=== PATIENT | male | born 1945 | race Caucasian/White ===

== ENCOUNTER 2016-09-10 10:30 | Inpatient (IN) ==
[2016-09-10] MEDS ORDERED: *HR* HYDROmorphone (PF) 1 MG/ML SYRINGE IVP ONE (12:51)
[2016-09-10] MEDS ORDERED: Naloxone 0.4 MG/ML INJ IVP PRN (13:14)
[2016-09-10] MEDS ORDERED: Ondansetron 4 MG/2 ML VIAL IVP PRN (13:14)
[2016-09-10] MEDS ORDERED: Acetaminophen 325 MG TABLET PO PRN (13:14)
--- NOTE | 2016-09-10 13:31 | Internal Med History&Physical ---
<Reg Akhtar - Last Filed: 09/10/16 13:24> Date of Encounter: 09/10/16 Time of Encounter: 13:25 Assessment and Plan (1) Pulmonary embolus Current visit: No Status: Acute Acute unprovoked pulmonary embolism with thin saddle component. Patient is symptomatic with hypoxia and chest pain. Onset last evening. Patient denies any clotting history, previous DVTs, PEs, or predisposing factors. - Requiring increased oxygen demand. - Abdominal distention Plan: - Continue heparin drip that was started in [place]. - Continuous cardiac monitoring and oxygen monitoring - Every 4 hour vitals - Duplex Doppler bilateral lower extremity - CT of the abdomen - Hepatic panel - PT/INR/PTT - Troponin 2 - Echocardiogram Qualifiers: Qualified Code(s): I26.99 - Other pulmonary embolism without acute cor pulmonale (2) COPD (chronic obstructive pulmonary disease) Current visit: Yes Status: Acute History of COPD emphysema. Baseline oxygen 2 L at home. Patient does not wear all the time. Current respiratory effort diminished with submassive PE. Plan: - DuoNeb scheduled - Albuterol nebulizer scheduled Qualifiers: Qualified Code(s): J44.9 - Chronic obstructive pulmonary disease, unspecified (3) Tobacco abuse Current visit: Yes Status: Acute Patient has significant smoking history and currently smokes 2 bowls in his pipe daily. Smoking cessation is highly recommended, patient is aware and this is been discussed. (4) ANDREW (acute kidney injury) Current visit: Yes Status: Acute Creatinine 1.39. Unknown a baseline. Will monitor. -We will allow patient to take by mouth fluids and hold off on IV fluids at this time. (5) DVT prophylaxis Current visit: Yes Status: Acute Heparin GTT Internal Medicine - H&P: HPI Chief complaint: Chest pain and left-sided Admitted From: Emergency Dept Plans for Post Hospital Care: Home History of present illness: Mr. Escalante is a 70 year old male history of COPD wears 2 L of oxygen at home Baseline was transferred from [facility] emergency department with a pulmonary embolism. Mr. Escalante woke up this morning around midnight with left-sided chest pain that came on acutely. He said that he was laying in bed sleeping and was awoken abruptly with left-sided lower rib chest pain which he thought was indigestion. He went down to the kitchen and had a glass of milk and his abdomen may a larger rumbling sound and he felt pain shoot around his abdomen and then back to his left lower anterior ribs. The pain stays isolated does not radiate anywhere else is exacerbated with deep breaths and made him feel short of breath. He is able to use one hand and point to the pain which is anterior lateral ribs around ribs 9 and 10. He denies any pain like this previously. He did not take any other medications to relieve the pain. He was recently hospitalized at [facility] for a COPD exacerbation for which she was discharged with prednisone. Discharge was roughly 1 month ago. He also mentions that he had a low-grade fever 2 days ago but was fully resolved yesterday. He denies any injuries, falls, dramatic events, tight restricting clothing, swelling his lower extremities or infections that may have been predisposing this event. He denies any blood clots previously has never had a DVT or PE. He denies any history of blood clotting disorders or any family history of blood clots. After arriving at [facility] he was found to have acute bilateral pulmonary embolism with since our component. More extensive on the left side. RV/LV ratio measures approximately 1.0. The CTA was also concerning for groundglass attenuations that could not rule out developing infarct of the lung. Also noted was a indeterminate liver lesion as partially visualized on the imaging study. Upon arrival to [facility] he continued to have left- sided chest pain. Patient says that he is usually fully functional without assistive devices and is not very sedentary. Past Med Surg Social Fam HX - Past Medical History Medical history: COPD Psychiatric history: no psych history - Past Surgical History Surgical History: appendectomy, hip replacement - Social History Smoking Status: Current some day smoker Smokeless Tobacco Status: No (PIPE- 2 BAGS DAILY) Alcohol use: none Drug use: none - Family History Brother Hx Family Cardiac Disorders: Yes (CABG) Hx Family Medical Disorders: Yes (MELANOMA) Internal Medicine - H&P: Meds Albuterol Sulfate [Albuterol Inhaler] 2 puff IH Q6HR PRN 09/10/16 [History] Budesonide/Formoterol 80/4.5 [Symbicort 80/4.5] 1 puff IH DAILY 09/10/16 [ History] Ipratropium/Albuterol Neb [Duoneb] 3 ml IH Q6HR 09/10/16 [History] Allergies No Known Allergies Allergy (Verified 09/10/16 06:01) All Systems PM: A 10-system review of systems was performed and is negative for pertinent findings except as documented above in the HPI. - Constitutional Constitutional: no fever(s), no falls, no night sweats, no weakness - EENT Eyes: no diplopia, no discharge, no loss of vision, no pain Nose, mouth and throat: no change in voice, no mouth pain, no nasal discharge, no sinus pain, no sore throat - Cardiovascular Cardiovascular ROS IM: chest pain, dyspnea, dyspnea on exertion, no claudication , no diaphoresis, no edema, no orthopnea Additional comments: Pain worse on laying flat. - Respiratory Respiratory: dyspnea, dyspnea on exertion, pain on inspiration, pain with cough , no hemoptysis, no wheezing - Gastrointestinal Gastrointestinal: dyspepsia, no belching, no bloating, no diarrhea, no dysphagia , no early satiety, no nausea - Genitourinary Genitourinary ROS male: no dysuria, no flank pain, no nocturia - Musculoskeletal Musculoskeletal ROS IM: no back pain, no muscle cramps, no muscle weakness, no numbness, no stiffness - Neurological Neurological ROS: no abnormal hearing, no abnormal movements, no abnormal speech , no confusion - Allergic/Immunologic Allergic/Immunologic: no tongue swelling - Constitutional Vitals: Pulse BP Pulse Ox 72 145/85 95 09/10/16 12:57 09/10/16 12:53 09/10/16 12:57 General appearance: Present: cooperative, mild distress, A&O X 3, pleasant - Head Head exam: Present: atraumatic, normocephalic - Eye Eye exam: Present: PERRL, conjuntiva pink, sclera anicteric Pupils: Present: PERRL - ENT ENT exam: Present: mucous membranes moist - Neck Neck exam general surgery: Present: supple, trachea midline. Absent: lymphadenopathy - Respiratory Additional comments: Patient demonstrates tachypnea, short quick breaths, low-grade wheezing diffusely. - Cardiovascular Cardiovascular exam: Present: RRR, +S1, +S2 Additional comments: Grade 2/6 systolic ejection murmur - GI/Abdominal GI/Abdominal exam: Present: firm, normal bowel sounds, no peritoneal signs. Absent: distended, tenderness - Extremities Exam Extremities exam: Present: normal capillary refill, normal inspection, warm, radial pulses palpable and symetrical. Absent: calf tenderness, cyanotic, joint swelling, pedal edema - Back Exam Back exam: Present: normal inspection - Neurological Exam Neurological exam: Present: CN II-XII intact, oriented X3, no focal deficits. Absent: pronater drift, facial droop, speech deficit - Psychiatric Psychiatric exam: Present: normal affect, normal mood - Skin Skin exam: Present: dry, intact <Dmitriy Guzman T - Last Filed: 09/10/16 14:10> Date of Encounter: 09/10/16 Internal Medicine - H&P: HPI History of present illness: Mr. Escalante is a 70 year old male All Systems PM: A 10-system review of systems was performed and is negative for pertinent findings except as documented above in the HPI. - Constitutional Vitals: Temp Pulse Resp BP Pulse Ox 97.6 F 72 20 145/85 95 09/10/16 12:50 09/10/16 12:57 09/10/16 12:50 09/10/16 12:53 09/10/16 12:57 - Attending Attestation I have independently interviewed and examined this patient. I have reviewed the EMR extensively and discussed plan of care the resident/nurse practitioner. 70 Y/O M with PMH of Emphysema, tobacco use who presented to [facility] ED with complains of pleuritic chest pain. He is evaluated at bedside with family members, tobacco smoker, COPD, with chronic hypoxia on home O2 which he does not wear all the time, He was well until midnight of day before presentation when he developed acute left sided severe 10/10 chest pain, associated with difficulty breathing, chest pain is sharp and worse with breathing and did not relieve with any OTC. He denies recent travel, leg pain or swelling, hx of thrombophilia, he does not follow up regularly with his PCP, and not complaint with his COPD medications Physical exam revealed , severe painful distress, crouching to the left side, no chest wall tenderness, hypoxia , no neurologic deficits, chest with diminished breath sounds and Left sided rhonchi peripherally S1/S2 , no m/g/r, abdomen is benign, no pedal edema, has Grade III finger clubbing bilaterally. Labs and Imaging reviewed: Leukocytosis with left shift, D-dimer 12,032, Chem with Cr 1.36 and GFR 52, troponin is negative, BNP is normal, Utox with opiates. EKG-, CTA: acute bilateral PE, thin saddle component, more extensive on the left, patchy areas of ground glass opacities, nonspecific and infectious or inflammatory in etiology, developing infarcts cannot be excluded. Lung nodules, indeterminate liver lesions Assessment/Plan: Acute on Chronic Hypoxic respiratory failure secondary to Acute Unprovoked Bilateral PE, mild saddle component, Pulmonary infarcts with intractable pain, hemodynamically stable, no R heart strain, continue heparin drip with plan to bridge, obtain ECHO, LE Doppler, Emphysema duonebs prn, Leukocytosis possibly due to stress, patient denies new cough, or change in phlegm, he is afebrile ANDREW: Encourage oral fluid intake, baseline is unknown to patient. Obtain abdomen and pelvis CT to assess possible liver lesions Rest of details as in Residents documentation.
[2016-09-10] MEDS ORDERED: *HR* Heparin 5,000 UNIT/ML VIAL IVP PRN (13:51)
[2016-09-10] MEDS: Heparin 25,000 UNIT/500 ML D5W 25,000 UNIT/500 ML MLS IVC SCH (14:00)
[2016-09-10 14:38] LABS: Hematocrit 37.5 % (37.5-50.1); Mean Corpuscular Hemoglobin 30.5 pg (28.0-33.3); Mean Corpuscular Volume 95.4 fL (83.0-100.0); Mean Platelet Volume 9.4 fL (9.4-12.4); Platelet Count 220 K/mcL (140-400); Red Blood Count 3.93 M/mcL (4.19-5.50); Red Cell Distribution Width 13.6 % (11.5-14.5)
[2016-09-10 14:52] LABS: Chol/HDL Ratio 3.2 (0-4.9); Magnesium 1.9 mg/dL (1.6-2.6); Phosphorous 9.4 mg/dL (2.3-4.7)
[2016-09-10] MEDS: Pantoprazole 40 MG VIAL IVP SCH (15:33)
[2016-09-10] MEDS ORDERED: Albuterol 2.5 MG/3 ML NEBULIZER IH SCH (16:00)
[2016-09-10] MEDS ORDERED: Albuterol 2.5 MG/3 ML NEBULIZER IH PRN (16:06)
[2016-09-10] MEDS: Ipratropium/Albuterol Neb 3 ML IH SCH ×3 (16:09→23:57)
[2016-09-10] MEDS: *HR* Morphine 2 MG/ML SYRINGE IVP PRN (16:54)
[2016-09-10 17:25] LABS: Bilirubin,Urine Negative (Negative); Blood,Urine Negative (Negative); Clarity,Urine Clear (Clear); Color,Urine Yellow (Yellow); Glucose,Urine (UA) Normal (Normal); Ketones,Urine Negative (Negative); Leukocyte Esterase,Urine Negative (Negative); Nitrite,Urine Negative (Negative); PH,Urine 5.5 pH Units (5.0-8.0); Protein,Urine 30 mg/dL (Neg-Trace); Specific Gravity,Urine > 1.030 (1.010-1.025); Urobilinogen,Urine Normal (Normal)
[2016-09-10 17:27] LABS: Bacteria,Urine None Seen per hpf (None-Few); RBC,Urine 0-3 per hpf (0-3); Squamous Epithelial Cell,Urine Many per lpf (None-Few); WBC,Urine 0-3 per hpf (0-3)
[2016-09-10 19:39] LABS: INR 1.3
[2016-09-10 19:42] LABS: Prothrombin Time 14.2 Seconds (9.4-12.1)
[2016-09-10] MEDS: *HR* OxyCODONE/APAP 5/325 TABLET PO PRN (20:20)
[2016-09-10 22:57] LABS: BUN/Creatinine Ratio 15 (6-26); Blood Urea Nitrogen 21 mg/dL (8-26); Calcium 8.7 mg/dL (8.6-10.8); Carbon Dioxide 24 mEq/L (19-29); Chloride 102 mEq/L (98-109); Glucose 107 mg/dL (70-99); Osmolality,Calculated 285 (280-300); Potassium 4.2 mEq/L (3.5-4.5); Sodium 136 mEq/L (136-145); eGFR For African Americans > 60 (> 60); eGFR For Non-African Americans 50 (> 60)
[2016-09-11] MEDS: *HR* Morphine 2 MG/ML SYRINGE IVP PRN ×3 (01:25→05:55)
[2016-09-11 01:34] LABS: BUN/Creatinine Ratio 15 (6-26); Basophils # 0.1 K/mcL (0.0-0.2); Basophils % 0.4 %; Blood Urea Nitrogen 21 mg/dL (8-26); Calcium 8.6 mg/dL (8.6-10.8); Carbon Dioxide 25 mEq/L (19-29); Chloride 102 mEq/L (98-109); Eosinophils # 0.1 K/mcL (0.0-0.6); Eosinophils % 0.4 %; Glucose 101 mg/dL (70-99); Hematocrit 37.2 % (37.5-50.1); Hemoglobin 12.2 g/dL (12.9-16.9); Immature Granulocytes % 0.6 % (0-4); Lymphocytes # 1.5 K/mcL (0.6-4.6); Lymphocytes % 12.2 %; Mean Corpuscular HGB Conc 32.8 g/dL (31.6-35.5); Mean Corpuscular Volume 94.7 fL (83.0-100.0); Mean Platelet Volume 9.3 fL (9.4-12.4); Monocytes # 1.4 K/mcL (0.0-1.3); Monocytes % 11.5 %; Neutrophils # 8.9 K/mcL (1.6-8.9); Osmolality,Calculated 285 (280-300); Platelet Count 226 K/mcL (140-400); Potassium 4.3 mEq/L (3.5-4.5); Red Blood Count 3.93 M/mcL (4.19-5.50); Red Cell Distribution Width 13.7 % (11.5-14.5); Segmented Neutrophils % 74.9 %; Sodium 136 mEq/L (136-145); eGFR For African Americans > 60 (> 60); eGFR For Non-African Americans 51 (> 60)
[2016-09-11] MEDS: *HR* Heparin 5,000 UNIT/ML VIAL IVP PRN ×2 (01:43→23:18)
[2016-09-11] MEDS: *HR* OxyCODONE/APAP 5/325 TABLET PO PRN (02:54)
[2016-09-11] MEDS: Ipratropium/Albuterol Neb 3 ML IH SCH ×6 (03:45→23:37)
[2016-09-11] MEDS ORDERED: Ibuprofen 400 MG TABLET PO PRN (06:09)
[2016-09-11] MEDS ORDERED: *HR* HYDROmorphone 20 MG/20 ML PCA IVC PRN (06:12)
--- NOTE | 2016-09-11 06:20 | Event Note ---
Date of Encounter: 09/11/16 Time of Encounter: 06:15 Called to see patient for complaints of pleuritic chest pain uncontrolled by Morphine and Percocet. Pt is splinting and complains of severe chest pain with any significant inspiration. On exam, he is shallow breathing so as to avoid pain. Lungs sounds are distant with prolonged expiratory phase. He does have some mild wheezing. HR is 100's; BP 120/70's. I reviewed his CTA of chest and abdomen. I suspect he has a pulmonary infarct developing in addition to his PE. I stopped his pain medications and called pharmacy requesting assistance with starting him on a Morphine COMMUNITY RECREATION PROGRAMMER pump. In addition, I'm adding Ibuprofen to help with the inflammatory component of his PE/Infarct. ECHO has already been ordered by Dr. Guzman. I am requesting an EKG at the moment and will review it.
[2016-09-11] MEDS ORDERED: 0.9 % Sodium Chloride 250 ML ONE (06:54)
[2016-09-11] MEDS: Pantoprazole 40 MG VIAL IVP SCH (09:55)
[2016-09-11] MEDS ORDERED: PROAIR INHALER IH PRN (10:39)
[2016-09-11] MEDS ORDERED: *HR* HYDROmorphone 2 MG/ML SYRINGE IVP PRN (12:00)
[2016-09-11] MEDS ORDERED: *HR* Morphine 2 MG/ML SYRINGE IVP PRN (12:01)
[2016-09-11] MEDS ORDERED: Acetaminophen 325 MG TABLET PO PRN (12:08)
[2016-09-11] MEDS: Capsaicin 0.025% 60 GM TUBE TP PRN ×2 (12:08→17:54)
--- NOTE | 2016-09-11 12:41 | Internal Med Progress Note ---
Date of Encounter: 09/11/16 Time of Encounter: 11:50 - Assessment and plan (1) Pulmonary embolus Current Visit: No Status: Acute Assessment and plan: CT chest consistent with bilateral PE currently on Heparin gtt B/L LE venous doppler reported LLE DVT discontinued APPLIANCE TECHNICIAN dilaudid pump due to mental status Will continue Dilaudid 1mg IV q2h prn severe pain and Toradol 30mg IV q6h prn moderate pain Hematology consultation requested with Dr. Kang will continue O2 supplementation 2D echo done, awaiting report. Qualifiers: Pulmonary embolism type: saddle Chronicity: acute Acute cor pulmonale presence: without acute cor pulmonale Qualified Code(s): I26.92 - Saddle embolus of pulmonary artery without acute cor pulmonale (2) Leukocytosis (leucocytosis) Current Visit: Yes Status: Acute Assessment and plan: CT chest concerning for infiltrates/consolidation given fever, will start empiric IV abx therapy for PNA continue IV vanc and zosyn pharmacy to dose vanco and monitor trough follow up blood cultures tylenol prn fever Qualifiers: Leukocytosis type: unspecified Qualified Code(s): D72.829 - Elevated white blood cell count, unspecified (3) COPD (chronic obstructive pulmonary disease) Current Visit: Yes Status: Acute Assessment and plan: not in acute exacerbation will continue bronchodilator support monitor O2 sat O2 supplementation as needed Qualifiers: COPD type: unspecified COPD Qualified Code(s): J44.9 - Chronic obstructive pulmonary disease, unspecified (4) ANDREW (acute kidney injury) Current Visit: Yes Status: Acute Assessment and plan: renal function improved from previous day continue to hold nephrotoxic agents monitor renal function closely (5) DVT prophylaxis Current Visit: Yes Status: Acute Assessment and plan: anticoagulated with heparin gtt (6) Tobacco abuse Current Visit: Yes Status: Chronic - Subjective Interval history: Patient seen and examined with family present at bedside. Patient admitted for bilateral PE and reported to have LLE DVT as well. He is currently on heparin gtt. Reported of severe pleuritic chest pain for which he was started on Dilaudid APPLIANCE TECHNICIAN pump earlier this morning. At this time his mental status is somnolent. He is arousable but not able to maintain a conversation. Reports of pain being under control. Noted to be tachycardic and febrile. 2D echo done-report pending - Constitutional Vitals: Temp Pulse Resp BP Pulse Ox 101.3 F H 112 20 136/79 93 09/11/16 11:57 09/11/16 12:10 09/11/16 11:57 09/11/16 11:57 09/11/16 11:57 General appearance: Present: cooperative, mild distress (painful distress, somnolent), A&O X 3, pleasant - Head Head exam: Present: atraumatic, normocephalic - Eye Eye exam: Present: normal appearance, conjuntiva pink, sclera anicteric - Respiratory Respiratory exam: Absent: wheezes (coarse breath sounds bilaterally) - Cardiovascular Cardiovascular exam: Present: +S1, +S2, tachycardia - GI/Abdominal GI/Abdominal exam: Present: normal bowel sounds, soft, no peritoneal signs. Absent: distended, tenderness - Extremities Exam Extremities exam: Present: warm, radial pulses palpable and symetrical. Absent : calf tenderness, pedal edema - Neurological Exam Neurological exam: Present: alert, oriented X3 Internal Medicine: Result - Labs CBC & Chem 7: 09/11/16 01:13 09/11/16 01:13 Labs: Short CBC 09/10/16 09/11/16 Range/Units 14:17 01:13 WBC 12.8 H 11.9 H (4.3-11.1) K/mcL Hgb 12.0 L D 12.2 L (12.9-16.9) g/dL Hct 37.5 37.2 L (37.5-50.1) % Plt Count 220 226 (140-400) K/mcL Neutrophils # 8.9 (1.6-8.9) K/mcL BMP 09/10/16 09/11/16 22:35 01:13 Sodium 136 136 Potassium 4.2 4.3 Chloride 102 102 Carbon Dioxide 24 25 BUN 21 21 Creatinine 1.40 H 1.37 H Glucose 107 H 101 H Calcium 8.7 8.6 Cardiac Enzymes 09/10/16 09/10/16 Range/Units 14:17 18:47 Troponin I 0.01 0.01 (0-0.03) ng/mL Urine 09/10/16 Range/Units 17:15 Urine Color Yellow (Yellow) Urine Clarity Clear (Clear) Urine pH 5.5 (5.0-8.0) pH Units Ur Specific [place] > 1.030 H (1.010-1.025) Urine Protein 30 H (Neg-Trace) mg/dL Urine Glucose (UA) Normal (Normal) mg/dL - ABG Interpretation ABG results: PT/INR, D-dimer PT 14.2 Seconds (9.4-12.1) H 09/10/16 18:47 - Impressions Impressions Abdomen/Pelvis CT 09/10/16 13:19 IMPRESSION: No evidence of acute abnormality in the abdomen or pelvis. There is mild gaseous distension of the transverse colon. No evidence of bowel obstruction. Colonic diverticulosis without findings of diverticulitis. Findings concerning for developing left lower lobe pulmonary infarct. D/ / Jean Tabor MD / Jean Tabor MD Interpreting Provider: Jean Tabor MD Consult Discharge Plan - Plan Referrals: NO,PCP [Primary Care Provider] -
[2016-09-11] MEDS: 0.9 % Sodium Chloride 1,000 ML IVC SCH (14:09)
[2016-09-11] MEDS: Piperacillin/Tazobactam 3.375 GM in D5% in Water (Mini-Bag+) 100 ML IVPB SCH ×3 (14:09→23:19)
[2016-09-11] MEDS: Vancomycin 1,000 MG in D5% in Water 250 ML IVPB SCH (14:42)
[2016-09-11] MEDS: Heparin 25,000 UNIT/500 ML D5W 25,000 UNIT/500 ML MLS IVC SCH (14:55)
[2016-09-11] MEDS: Ketorolac 30 MG/ML VIAL IVP PRN (16:31)
[2016-09-11] MEDS: SYMBICORT 160/4.5 IH SCH (21:45)
[2016-09-12] MEDS: Ketorolac 30 MG/ML VIAL IVP PRN ×2 (00:03→08:19)
[2016-09-12] MEDS: 0.9 % Sodium Chloride 1,000 ML IVC SCH ×2 (03:30→16:31)
[2016-09-12] MEDS: Ipratropium/Albuterol Neb 3 ML IH SCH ×6 (03:38→23:47)
[2016-09-12 05:30] LABS: Basophils % 0.3 %; Eosinophils # 0.1 K/mcL (0.0-0.6); Eosinophils % 1.2 %; Hematocrit 32.1 % (37.5-50.1); Immature Granulocytes % 0.7 % (0-4); Lymphocytes % 9.1 %; Mean Corpuscular HGB Conc 32.7 g/dL (31.6-35.5); Mean Corpuscular Hemoglobin 31.2 pg (28.0-33.3); Mean Corpuscular Volume 95.3 fL (83.0-100.0); Mean Platelet Volume 9.2 fL (9.4-12.4); Monocytes # 1.1 K/mcL (0.0-1.3); Monocytes % 10.3 %; Neutrophils # 8.3 K/mcL (1.6-8.9); Platelet Count 197 K/mcL (140-400); Red Blood Count 3.37 M/mcL (4.19-5.50); Red Cell Distribution Width 13.5 % (11.5-14.5); Segmented Neutrophils % 78.4 %
[2016-09-12 05:31] LABS: Hemoglobin 10.5 g/dL (12.9-16.9)
[2016-09-12 05:44] LABS: Calcium 8.2 mg/dL (8.6-10.8); Potassium 4.2 mEq/L (3.5-4.5)
[2016-09-12 05:48] LABS: Phosphorous 3.4 mg/dL (2.3-4.7)
--- NOTE | 2016-09-12 06:24 | Oncology Inp Consult Note ---
Date of Encounter: 09/12/16 Time of Encounter: 06:16 - Data of Consult Patient: new to practice Consult date: 09/12/16 Requesting Physician: Jillian Goldberg MD Primary Care Provider: PCP NO - Consult Narrative Reason for consult: Suspected hypercoagulable state History of present illness: Mr. Escalante is a 70 year old gentleman seen in consultation regarding newly diagnosed venous thromboembolism with suspicion for an underlying hypercoagulable state. Patient presented with acute, painful chest discomfort associated with shortness of breath. Diagnostic workup: Chest CT 09/10/16 confirmed acute bilateral pulmonary embolism with saddle component and possible pulmonary infarct. Additional finding of subtle groundglass opacity in the left lung and few subcentimeter right lung nodules considered indeterminate. Indeterminate liver lesion. Dedicated abdomen CT same day was negative for acute abnormality and no evidence of malignancy. Lower extremity Doppler verbally reported as positive for left lower extremity DVT. I do not have the official report. Echocardiogram showed LVEF 60-65%. Ongoing management: Since admission, he has been started on heparin drip with subsequent improvement in his symptoms. Evaluation: Oncology is consulted for anticoagulation recommendations. Dr. Goldberg was kind enough to discuss patient's case with me in February requesting consultation regarding his clinical background. Patient seen and examined at bedside. Chart review for detailed ongoing care by hospital team. At time of evaluation, he is feeling considerably better. He reports significant improvement in his chest pain or respiratory symptoms with current management. He does not have any prior diagnosis of primary hematologic disorder including thromboembolic disease. No previous diagnosis of malignancy. Has a long-standing history of chronic tobacco use and underlying COPD. He was recently has [facility] for COPD exacerbation. No other constitutional symptoms suggest underlying occult malignancy. Rest of past medical, surgical, family, social history detailed below and verified with patient today. Review of systems: 12 point review of systems performed with patient and positive findings noted in history of present illness. All other systems are negative: Physical exam: Vital Signs Temp 97.4 F L 09/12/16 05:29 Pulse 77 09/12/16 05:29 Resp 18 09/12/16 05:29 BP 121/67 09/12/16 05:29 Pulse Ox 100 09/12/16 05:29 GENERAL: Alert and oriented, [default value] appearing. Mental Status: Affect appropriate for circumstances HEENT: Sclerae anicteric. No mucositis or thrush. No other oral or pharyngeal lesions or erythema. Skin: No rashes or petechiae. No evidence of skin malignancy Lymph nodes: No cervical, supraclavicular, axillary, or inguinal adenopathy. Lungs: Clear to auscultation bilaterally. Clear to percussion bilaterally. Cardiovascular: Regular rate and rhythm. No gallops, murmurs, or rubs. Abdomen: Soft, nontender; No organomegaly or masses palpable. Extremities: No edema. No calf swelling or tenderness. No joint deformity. Neurologic: Alert, normal gait; no focal weakness or sensory abnormalities. Results: Laboratory Last Values WBC 10.6 K/mcL (4.3-11.1) 09/12/16 05: RBC 3.37 M/mcL (4.19-5.50) L 09/12/16 05:17 Hgb 10.5 g/dL (12.9-16.9) L D 09/12/16 05:17 Hct 32.1 % (37.5-50.1) L 09/12/16 05:17 MCV 95.3 fL (83.0-100.0) 09/12/16 05:17 MCH 31.2 pg (28.0-33.3) 09/12/16 05:17 MCHC 32.7 g/dL (31.6-35.5) 09/12/16 05:17 RDW 13.5 % (11.5-14.5) 09/12/16 05:17 Plt Count 197 K/mcL (140-400) 09/12/16 05:17 MPV 9.2 fL (9.4-12.4) L 09/12/16 05:17 Immature Gran % 0.7 % (0-4) 09/12/16 05:17 Seg Neutrophils % 78.4 % 09/12/16 05:17 Lymphocytes % 9.1 % 09/12/16 05:17 Monocytes % 10.3 % 09/12/16 05:17 Eosinophils % 1.2 % 09/12/16 05:17 Basophils % 0.3 % 09/12/16 05:17 Neutrophils # 8.3 K/mcL (1.6-8.9) 09/12/16 05:17 Lymphocytes # 1.0 K/mcL (0.6-4.6) 09/12/16 05:17 Monocytes # 1.1 K/mcL (0.0-1.3) 09/12/16 05:17 Eosinophils # 0.1 K/mcL (0.0-0.6) 09/12/16 05:17 Basophils # 0.0 K/mcL (0.0-0.2) 09/12/16 05:17 PT 14.2 Seconds (9.4-12.1) H 09/10/16 18:47 INR 1.3 09/10/16 18:47 APTT 108.1 Seconds (26.0-36.0) H D 09/12/16 05:17 Sodium 136 mEq/L (136-145) 09/12/16 05:17 Potassium 4.2 mEq/L (3.5-4.5) 09/12/16 05:17 Chloride 103 mEq/L (98-109) 09/12/16 05:17 Carbon Dioxide 23 mEq/L (19-29) 09/12/16 05:17 BUN 27 mg/dL (8-26) H 09/12/16 05:17 Creatinine 1.60 mg/dL (0.72-1.25) H 09/12/16 05:17 Est GFR ( Amer) 52 (> 60) L 09/12/16 05:17 Est GFR (Non-Af Amer) 43 (> 60) L 09/12/16 05:17 BUN/Creatinine Ratio 17 (6-26) 09/12/16 05:17 Glucose 109 mg/dL (70-99) H 09/12/16 05:17 Calculated Osmolality 288 (280-300) 09/12/16 05:17 Calcium 8.2 mg/dL (8.6-10.8) L 09/12/16 05:17 Phosphorus 3.4 mg/dL (2.3-4.7) D 09/12/16 05:17 Magnesium 2.0 mg/dL (1.6-2.6) 09/12/16 05:17 Troponin I 0.01 ng/mL (0-0.03) 09/10/16 18:47 Triglycerides 98 mg/dL (< 150) 09/10/16 14:17 Cholesterol 153 mg/dL (< 200) 09/10/16 14:17 LDL Cholesterol, Calc 85 mg/dL (0-99) 09/10/16 14:17 VLDL Cholesterol, Calc 20 mg/dL (< 31) 09/10/16 14:17 HDL Cholesterol 48 mg/dL (40-59) 09/10/16 14:17 Cholesterol/HDL Ratio 3.2 (0-4.9) 09/10/16 14:17 Urine Color Yellow (Yellow) 09/10/16 17:15 Urine Clarity Clear (Clear) 09/10/16 17:15 Urine pH 5.5 pH Units (5.0-8.0) 09/10/16 17:15 Ur Specific [place] > 1.030 (1.010-1.025) H 09/10/16 17:15 Urine Protein 30 mg/dL (Neg-Trace) H 09/10/16 17:15 Urine Glucose (UA) Normal mg/dL (Normal) 09/10/16 17:15 Urine Ketones Negative mg/dL (Negative) 09/10/16 17:15 Urine Blood Negative (Negative) 09/10/16 17:15 Urine Nitrite Negative (Negative) 09/10/16 17:15 Urine Bilirubin Negative (Negative) 09/10/16 17:15 Urine Urobilinogen Normal mg/dL (Normal) 09/10/16 17:15 Ur Leukocyte Esterase Negative (Negative) 09/10/16 17:15 Urine Microscopic RBC 0-3 per hpf (0-3) 09/10/16 17:15 Urine Microscopic WBC 0-3 per hpf (0-3) 09/10/16 17:15 Ur Squamous Epith Cells Many per lpf (None-Few) H 09/10/16 17:15 Urine Bacteria None Seen per hpf (None-Few) 09/10/16 17:15 Specimen Rejected Miscellaneous 09/10/16 14:17 Radiographic studies: I personally reviewed and interpreted patient's most recent imaging studies dated 09/10/16. I discussed the findings with the patient today. Abdomen/Pelvis CT 09/10/16 13:19 IMPRESSION: No evidence of acute abnormality in the abdomen or pelvis. There is mild gaseous distension of the transverse colon. No evidence of bowel obstruction. Colonic diverticulosis without findings of diverticulitis. Findings concerning for developing left lower lobe pulmonary infarct. D/ / Jean Tabor MD / Jean Tabor MD Interpreting Provider: Jean Tabor MD 1. Acute bilateral pulmonary emboli with a thin saddle component, more extensive on the left. RV/LV ratio measures approximately 1.0. 2. Patchy areas of ground-glass attenuation in the left lung which are nonspecific and could be infectious or inflammatory in etiology. Developing infarcts cannot be excluded. 3. A few subcentimeter nodular opacities in the right lung which are indeterminate and can be followed per Fleischner society guidelines in 3 months. 4. Emphysematous changes. 5. Indeterminate liver lesions which are partially visualized in the upper abdomen, some of which measure above water attenuation. These can also be followed on subsequent exams or further evaluated with MRI once acute issues have resolved. Critical results were called by Dr. Ginny Kirkpatrick MD to Nely Fox on 09/10/2016 at 08:55. Impression/recommendations: Acute venous thromboembolism: Bilateral pulmonary embolism with left lower extremity DVT. I had a detailed discussion with the patient regarding diagnostic considerations for his newly diagnosed pulmonary embolism based on his history, no obvious provoking factors although he was recently hospitalized for about 5 days at [facility] and I wonder if immobilization during same hospital admission. In any event, I agree with ongoing anticoagulation. He will need anticoagulation for 6 months at a minimum depending on risk factors and residual clot burden. Since he has been on IV heparin for more than 24 hours, I think he can be transitioned to oral anticoagulant and Lovenox to bridge him to therapeutic anticoagulation. Would recommend 1 g/kg of Lovenox twice daily. Would recommend oral anticoagulation depending on coverage and financial status. If we are able to get financial coverage, he will be an appropriate candidate for a NOACs. Of course Coumadin is equally reasonable if there are any sugars with coverage. Suspected hypercoagulable state: Since we do not have an obvious admission for his clotting episode, we'll recommend workup for hypercoagulable state including factor V Leiden and prothrombin gene mutation analysis which have been sent. Rest of his thrombophilia studies including clotting protein levels etc. cannot be reliably performed in the setting of an acute clot and ongoing anticoagulation. If there is consideration was discontinued and the coordination in the future, we will interrupted anticoagulation and complete the rest of his thrombophilia workup to determine his clotting recurrence risk. D-dimer is considerably elevated and would be a useful monitoring tool to evaluate his clotting recurrence risk in the future Unexplained anemia: Normocytic variant. No obvious explanation. Anemia is of mild severity and no associated symptoms. Once we address his markers and acute issues, we will address the question of routine endoscopy for GI cancer screening. Abdomen CT during this hospitalization does not show any evidence to suggest underlying occult malignancy as basis for hypercoagulable state. Recommend to complete anemia workup including: Iron panel, ferritin, reticulocyte count, B12, folate, TSH, T4, LDH etc. if not already completed. Please monitor CBCs with stability while on anticoagulation. Upon discharge, allowing for outpatient follow-up in 2-3 weeks for ongoing anticoagulation management and further recommendations. We'll follow the patient along side you during this hospitalization but please do not hesitate to call regarding interval hematologic questions as they arise. Thank you for your excellent ongoing care for allowing us to see him while in- house. This report was created using voice recognition software and may contain errors. It was signed but not edited to expedite communication. Past Med Surg Social Fam HX - Past Medical History Medical history: COPD Psychiatric history: no psych history - Past Surgical History Surgical History: appendectomy, hip replacement - Social History Smoking Status: Current some day smoker Smokeless Tobacco Status: No (PIPE- 2 BAGS DAILY) Alcohol use: none Drug use: none - Family History Brother Hx Family Cardiac Disorders: Yes (CABG) Hx Family Medical Disorders: Yes (MELANOMA) Medications and Allergies Albuterol Sulfate [Albuterol Inhaler] 2 puff IH Q4H PRN 09/10/16 [History] Budesonide/Formoterol 160/4.5 [Symbicort 160/4.5] 1 puff IH BIDR 09/10/16 [ History] Ipratropium/Albuterol Neb [Duoneb] 3 ml IH Q6HR PRN 09/10/16 [History] Allergies No Known Allergies Allergy (Verified 09/10/16 06:01) Oncology - Exam - Constitutional Vitals: Temp Pulse Resp BP Pulse Ox 97.4 F L 77 18 121/67 100 09/12/16 05:29 09/12/16 05:29 09/12/16 05:29 09/12/16 05:29 09/12/16 05:29 Oncology - Results - Labs Labs: Short CBC 09/12/16 Range/Units 05:17 WBC 10.6 (4.3-11.1) K/mcL Hgb 10.5 L D (12.9-16.9) g/dL Hct 32.1 L (37.5-50.1) % Plt Count 197 (140-400) K/mcL Neutrophils # 8.3 (1.6-8.9) K/mcL BMP 09/12/16 05:17 Sodium 136 Potassium 4.2 Chloride 103 Carbon Dioxide 23 BUN 27 H Creatinine 1.60 H Glucose 109 H Calcium 8.2 L Consult Discharge Plan - Plan Referrals: BENI TORRES [Other] - 10/10/16 10:00 am (The office put him on a waiting list if they have someone cancel they will call him and get him in sooner) NO,PCP [Primary Care Provider] -
--- NOTE | 2016-09-12 08:14 | ECHO - Doppler Report ---
Echocardiogram Name: Benito Escalante Date of Study: 09/11/2016 Date: 1945 Ht: 69.0 in Medical Record#: [id number] Age: 70 Wt: 155.0 lb Gender: Male BSA: 1.85 Order #: [id number] Location: [facility] Room #: 2N15 Reading Physician: Mack Bess DO, MARY [place] Revenue Officer: Tracey Man RDCS Ordering Physician: Reg Akhtar DO Primary Physician: None Indications: Pulmonary embolus Impressions: Technically sub-optimal due to poor echocardiographic windows. LVEF 60-65%. Normal LV chamber size, wall thickness and function. Mild left ventricular diastolic dysfunction. Atypical septal motion of unclear etiology. Unable to estimate RVSP due to lack of TR jet. No significant valvular dysfunction. Left Ventricular Wall Motion: Rest Echo Findings All wall segments showed normal motion. Findings: Study Quality * Technically sub-optimal due to poor echocardiographic windows. ECG Findings * Sinus rhythm with PVCs. Left Ventricle * LVEF 60-65%. * Normal LV chamber size, wall thickness and function. * Mild left ventricular diastolic dysfunction. * Atypical septal motion of unclear etiology. Right Ventricle * Normal right ventricular structure and function. Left Atrium * Normal left atrial size. Right Atrium * Normal right atrial size. Interatrial Septum * Interatrial septum not well evaluated. Aortic Valve * Aortic valve not well visualized. * No aortic regurgitation. * No aortic stenosis. Mitral Valve * Normal mitral valve structure and function. * No mitral stenosis. * No mitral regurgitation. Tricuspid Valve * Normal tricuspid valve structure and function. * No tricuspid regurgitation. * Unable to estimate RVSP due to lack of TR jet. Pulmonic Valve * Pulmonic valve not well visualized. * No pulmonic regurgitation. Aorta * Normally sized aortic root. Pericardium * The pericardium appears normal. IVC * The IVC is not well evaluated. Pulmonary Artery * Pulmonary artery not well visualized. History Family History of CAD Measurements: BP: 126/ 95 2D Normal Values RVIDd: 1.78 cm <2.7 cm IVSd: .69 cm 0.6 - 1.0 cm LVIDd: 3.58 cm 3.7 - 5.6 cm LVPWd: .83 cm 0.6 - 1.1 cm LVIDs: 2.01 cm 1.5 - 3.6 cm AO: 2.40 cm < 4.0 cm LA: 3.00 cm 2.0 - 4.0cm %FS: 43.90 cm >25 % LA volume: 11 Mitral Valve Peak E:.60 m/sec Peak A:1.10 m/sec E/A Ratio:0.5 Peak E' Lat Dominick:9.03 cm/s Peak E' Med Dominick:7.18 cm/s E/E' Lat Ratio:6.6 E/E' Med Ratio:8.3 Updated by Mack Bess DO, FACAbe, MARY, ELIAS on 09/12/2016 8:04:46 AM electronically signed on 09/12/2016 8:08:50 AM with status of Final Wall Motion Ahmadi: 1=Normal, 2=Hypokinesis, 3=Akinesis, 4=Dyskinesis, 5=Aneurysmal, 6=Hyperkinetic, X=Not Visualized (Blank)=Missing
[2016-09-12] MEDS: Pantoprazole 40 MG VIAL IVP SCH (08:20)
[2016-09-12] MEDS: SYMBICORT 160/4.5 IH SCH ×2 (08:20→21:49)
[2016-09-12] MEDS: Piperacillin/Tazobactam 3.375 GM in D5% in Water (Mini-Bag+) 100 ML IVPB SCH ×3 (08:20→23:34)
--- NOTE | 2016-09-12 09:31 | Electrocardiograph Report ---
[place] [id number] Test Date: 2016-09-11 Pat Name: Benito Escalante Department: 110 Room: 2N15 Gender: M [employer]ending Activities Supervisor: : 1945 Requested By: Jillian Goldberg Order Number: [id number] Reading MD: Kike Draper MD Measurements Intervals [place] Rate: 106 P: 67 NH: 178 QRS: 28 QRSD: 66 T: 56 QT: 305 QTc: 367 Interpretive Statements SINUS TACHYCARDIA WITH OCCASIONAL VENTRICULAR PREMATURE COMPLEXES Electronically Signed On 09-12-2016 9:29:27 EDT by Kike Draper MD
[2016-09-12] MEDS: Vancomycin 1,000 MG in D5% in Water 250 ML IVPB SCH (12:20)
--- NOTE | 2016-09-12 12:32 | Venous Imaging Report ---
LE Venous Duplex Patient Name:Benito Escalante Order Number:[id number] Procedure Date:09/11/2016 Date:6Age:70 yrs Gender:Male Location:[facility] Room #: 2N15 Greeter:Tracey Man RDCS Referring MD:Reg Akhtar DO network support:None Reading MD:Chris Toussaint MD , FACS Primary Indications:Pulmonary Embolism Secondary Indications: Impressions: Left lower extremity: normal deep exam. Lower extremity abnormal superficial exam: right lesser saphenous vein demonstrates chronic thrombosis. Right lower extremity: normal superficial and deep exam. Recommendations: Test completed on 09/11/2016 at 8:11:00 am. Critical findings reported to Dr Goldberg in person at 8:13:00 am on 09/11/2016 by Tracey Man RDCS. Findings Venous Duplex Results: Right: Venous imaging of the lower extremity reveals full patency and normal vessel compressibility of the right distal iliac, right common femoral, right superficial femoral, right popliteal, right posterior tibial, right peroneal, right great saphenous and right lesser saphenous. Doppler signals in the evaluated veins were normal. Left: Venous imaging of the lower extremity reveals full patency and normal vessel compressibility of the left distal iliac, left common femoral, left superficial femoral, left popliteal, left posterior tibial, left peroneal and left great saphenous. Doppler signals in the evaluated veins were normal. There is a chronic partially occlusive thrombus seen in the left lesser saphenous. It demonstrates a partially compressible vein. Flow was continuous and it did augment. Prior Study: No prior study available for comparison. Lower Extremity Venous Duplex Side Vein Compress Spontaneous Flow Augment Diameter (cm) Depth (cm) Right Distal Iliac Normal Yes Phasic Yes Right Common Femoral Normal Yes Phasic Yes Right Superficial Femoral Normal Yes Phasic Yes Right Popliteal Normal Yes Phasic Yes Right Posterior Tibial Normal Yes Phasic Yes Right Peroneal Normal Yes Phasic Yes Right Great Saphenous Normal Yes Phasic Yes Right Lesser Saphenous Normal Yes Phasic Yes Left Distal Iliac Normal Yes Phasic Yes Left Common Femoral Normal Yes Phasic Yes Left Superficial Femoral Normal Yes Phasic Yes Left Popliteal Normal Yes Phasic Yes Left Posterior Tibial Normal Yes Phasic Yes Left Peroneal Normal Yes Phasic Yes Left Great Saphenous Normal Yes Phasic Yes Left Lesser Saphenous Partial no Continuous yes Updated by Chris J Norbert, MD, FACS on 09/12/2016 12:27:24 PM Chris Toussaint MD electronically signed on 09/12/2016 12:28:28 PM with status of Final
[2016-09-12] MEDS: *HR* Heparin 5,000 UNIT/ML VIAL IVP PRN (12:59)
[2016-09-12] MEDS: Heparin 25,000 UNIT/500 ML D5W 25,000 UNIT/500 ML MLS IVC SCH (13:06)
[2016-09-12] MEDS ORDERED: Ketorolac 30 MG/ML VIAL IVP PRN (14:10)
[2016-09-12] MEDS ORDERED: Ketorolac 15 MG/ML VIAL IVP PRN (14:40)
--- NOTE | 2016-09-12 16:09 | Internal Med Progress Note ---
Date of Encounter: 09/12/16 Time of Encounter: 15:30 - Assessment and plan (1) Pulmonary embolus Current Visit: No Status: Acute Assessment and plan: CT chest consistent with bilateral PE B/L LE venous doppler reported LLE DVT Hematology consultation appreciated Will start Coumadin and bridge with heparin gtt (unable to use Lovenox given kidney function, as per social secretary, patient does not have insurance that will accomodate NOAG therefore will start with Coumadin) Pain better controlled with Toradol and Dilaudid Due to worsening renal function will decrease Toradol dosing will continue O2 supplementation 2D echo done noted: no right heart strain reported Qualifiers: Pulmonary embolism type: saddle Chronicity: acute Acute cor pulmonale presence: without acute cor pulmonale Qualified Code(s): I26.92 - Saddle embolus of pulmonary artery without acute cor pulmonale (2) Leukocytosis (leucocytosis) Current Visit: Yes Status: Acute Assessment and plan: CT chest concerning for infiltrates/consolidation Afebrile and overall significant improvement clinically Will continue IV abx for another day and de-escalate therapy as per cultures pharmacy to dose vanco and monitor trough follow up blood cultures tylenol prn fever Qualifiers: Leukocytosis type: unspecified Qualified Code(s): D72.829 - Elevated white blood cell count, unspecified (3) COPD (chronic obstructive pulmonary disease) Current Visit: Yes Status: Acute Assessment and plan: not in acute exacerbation will continue bronchodilator support monitor O2 sat O2 supplementation as needed Qualifiers: COPD type: unspecified COPD Qualified Code(s): J44.9 - Chronic obstructive pulmonary disease, unspecified (4) ANDREW (acute kidney injury) Current Visit: Yes Status: Acute Assessment and plan: renal function worsened will decreased Toradol dosing, however NSAID are providing patient with better pain relief than narcotics, therefore will continue but use with caution continue IV fluids closely monitor renal function (5) DVT prophylaxis Current Visit: Yes Status: Acute Assessment and plan: anticoagulated with heparin gtt (6) Tobacco abuse Current Visit: Yes Status: Chronic - Subjective Interval history: Patient seen and examined with family present at bedside. Reports of feeling better than yesterday. pain better controlled. Saturating well on nasal cannula. - Constitutional Vitals: Temp Pulse Resp BP Pulse Ox 98 F 102 16 93/57 98 09/12/16 15:00 09/12/16 15:50 09/12/16 15:41 09/12/16 11:11 09/12/16 15:41 General appearance: Present: cooperative, A&O X 3, pleasant, no acute distress - Head Head exam: Present: atraumatic, normocephalic - Eye Eye exam: Present: conjuntiva pink, sclera anicteric - Respiratory Respiratory exam: Present: CTAB. Absent: accessory muscle use, rales, rhonchi, wheezes - Cardiovascular Cardiovascular exam: Present: RRR, +S1, +S2. Absent: diastolic murmur, gallop, rubs, systolic murmur - GI/Abdominal GI/Abdominal exam: Present: normal bowel sounds, soft, no peritoneal signs. Absent: distended, tenderness - Extremities Exam Extremities exam: Present: warm, radial pulses palpable and symetrical. Absent : calf tenderness, cyanotic, pedal edema - Neurological Exam Neurological exam: Present: alert, oriented X3 - Psychiatric Psychiatric exam: Present: normal affect, normal mood Internal Medicine: Result - Labs CBC & Chem 7: 09/12/16 05:17 09/12/16 05:17 Labs: Short CBC 09/12/16 Range/Units 05:17 WBC 10.6 (4.3-11.1) K/mcL Hgb 10.5 L D (12.9-16.9) g/dL Hct 32.1 L (37.5-50.1) % Plt Count 197 (140-400) K/mcL Neutrophils # 8.3 (1.6-8.9) K/mcL BMP 09/12/16 05:17 Sodium 136 Potassium 4.2 Chloride 103 Carbon Dioxide 23 BUN 27 H Creatinine 1.60 H Glucose 109 H Calcium 8.2 L - ABG Interpretation ABG results: PT/INR, D-dimer PT 14.2 Seconds (9.4-12.1) H 09/10/16 18:47 Consult Discharge Plan - Plan Referrals: BENI TORRES [Other] - 10/10/16 10:00 am (The office put him on a waiting list if they have someone cancel they will call him and get him in sooner) NO,PCP [Primary Care Provider] - Felice Kang MD [Partnered Physician] - 09/30/16 10:30 am
[2016-09-12] MEDS ORDERED: *HR* Warfarin 5 MG TABLET PO ONE (18:00)
[2016-09-12] MEDS ORDERED: Warfarin perPT PO PRN (18:00)
[2016-09-13 02:58] LABS: Basophils % 0.3 %; Eosinophils # 0.3 K/mcL (0.0-0.6); Eosinophils % 3.2 %; Hemoglobin 9.9 g/dL (12.9-16.9); Immature Granulocytes % 0.4 % (0-4); Lymphocytes # 0.6 K/mcL (0.6-4.6); Lymphocytes % 8.1 %; Mean Corpuscular Hemoglobin 30.5 pg (28.0-33.3); Mean Corpuscular Volume 92.3 fL (83.0-100.0); Mean Platelet Volume 9.5 fL (9.4-12.4); Monocytes # 0.7 K/mcL (0.0-1.3); Monocytes % 8.5 %; Neutrophils # 6.2 K/mcL (1.6-8.9); Platelet Count 230 K/mcL (140-400); Red Blood Count 3.25 M/mcL (4.19-5.50); Red Cell Distribution Width 13.5 % (11.5-14.5); Segmented Neutrophils % 79.5 %
[2016-09-13 03:07] LABS: INR 1.4; Prothrombin Time 14.9 Seconds (9.4-12.1)
[2016-09-13 03:10] LABS: Activated Partial Thrombo Time 68.6 Seconds (26.0-36.0); BUN/Creatinine Ratio 17 (6-26); Blood Urea Nitrogen 20 mg/dL (8-26); Calcium 7.7 mg/dL (8.6-10.8); Carbon Dioxide 20 mEq/L (19-29); Chloride 107 mEq/L (98-109); Glucose 91 mg/dL (70-99); Magnesium 1.9 mg/dL (1.6-2.6); Osmolality,Calculated 288 (280-300); Phosphorous 2.1 mg/dL (2.3-4.7); Potassium 3.5 mEq/L (3.5-4.5); Sodium 138 mEq/L (136-145); eGFR For African Americans > 60 (> 60); eGFR For Non-African Americans > 60 (> 60)
[2016-09-13] MEDS: Ipratropium/Albuterol Neb 3 ML IH SCH ×6 (04:20→23:43)
[2016-09-13] MEDS: 0.9 % Sodium Chloride 1,000 ML IVC SCH ×2 (05:55→19:22)
[2016-09-13] MEDS: Piperacillin/Tazobactam 3.375 GM in D5% in Water (Mini-Bag+) 100 ML IVPB SCH (07:42)
[2016-09-13] MEDS: Pantoprazole 40 MG VIAL IVP SCH (07:42)
[2016-09-13] MEDS: SYMBICORT 160/4.5 IH SCH ×2 (07:47→21:05)
[2016-09-13] MEDS ORDERED: Aminoglycoside Consult 1 EACH MC ONE (09:33)
[2016-09-13] MEDS: Vancomycin 1,000 MG in D5% in Water 250 ML IVPB SCH (13:21)
[2016-09-13] MEDS ORDERED: *HR* Warfarin 5 MG TABLET PO ONE (18:00)
--- NOTE | 2016-09-13 18:56 | Internal Med Progress Note ---
Date of Encounter: 09/13/16 Time of Encounter: 10:00 - Assessment and plan (1) Pulmonary embolus Current Visit: No Status: Acute Assessment and plan: CT chest consistent with bilateral PE B/L LE venous doppler reported LLE SVT, negative to DVT b/L Hematology consultation appreciated Will start Coumadin and bridge with heparin gtt (unable to use Lovenox given kidney function, as per social worker health services, patient does not have insurance that will accomodate NOAG therefore will start with Coumadin) Pain better controlled with Toradol and Dilaudid will continue O2 supplementation 2D echo done noted: no right heart strain reported Patient is at high risk because he is on heparin drip, need close monitoring Qualifiers: Pulmonary embolism type: saddle Chronicity: acute Acute cor pulmonale presence: without acute cor pulmonale Qualified Code(s): I26.92 - Saddle embolus of pulmonary artery without acute cor pulmonale (2) COPD (chronic obstructive pulmonary disease) Current Visit: Yes Status: Acute Assessment and plan: not in acute exacerbation will continue bronchodilator support monitor O2 sat O2 supplementation as needed Qualifiers: COPD type: unspecified COPD Qualified Code(s): J44.9 - Chronic obstructive pulmonary disease, unspecified (3) DVT prophylaxis Current Visit: Yes Status: Acute Assessment and plan: anticoagulated with heparin gtt and coumadin. - Time Spent With Patient Greater than 35 minutes - Subjective Interval history: Patient is a 70-year-old male admitted for PE. Past medical history is significant for COPD. Patient was seen and examined. Improve with the shortness of breath and tachycardia. Still have pleural pain. Vital signs stable. Will continue heparin drip and Coumadin treatment, follow-up PT/INR. - Constitutional Vitals: Temp Pulse Resp BP Pulse Ox 99.0 F 99 18 119/79 97 09/13/16 15:47 09/13/16 15:47 09/13/16 15:47 09/13/16 15:47 09/13/16 15:47 General appearance: Present: cooperative, A&O X 3, pleasant, no acute distress - Head Head exam: Present: atraumatic, normocephalic - Eye Eye exam: Present: PERRL, conjuntiva pink, sclera anicteric Pupils: Present: PERRL - Neck Neck exam general surgery: Present: supple, trachea midline. Absent: lymphadenopathy - Respiratory Respiratory exam: Present: CTAB. Absent: accessory muscle use, rales, rhonchi, wheezes - Cardiovascular Cardiovascular exam: Present: RRR, +S1, +S2. Absent: diastolic murmur, gallop, rubs, systolic murmur - GI/Abdominal GI/Abdominal exam: Present: normal bowel sounds, soft, no peritoneal signs. Absent: distended, tenderness - Extremities Exam Extremities exam: Present: warm, radial pulses palpable and symetrical. Absent : calf tenderness, cyanotic, pedal edema - Neurological Exam Neurological exam: Present: CN II-XII intact, oriented X3, no focal deficits. Absent: pronater drift, facial droop, speech deficit - Skin Skin exam: Present: dry, intact Internal Medicine: Result - Labs CBC & Chem 7: 09/13/16 00:53 09/13/16 00:53 Labs: Short CBC 09/13/16 Range/Units 00:53 WBC 7.8 (4.3-11.1) K/mcL Hgb 9.9 L (12.9-16.9) g/dL Hct 30.0 L (37.5-50.1) % Plt Count 230 (140-400) K/mcL Neutrophils # 6.2 (1.6-8.9) K/mcL BMP 09/13/16 00:53 Sodium 138 Potassium 3.5 Chloride 107 Carbon Dioxide 20 BUN 20 Creatinine 1.18 Glucose 91 Calcium 7.7 L - ABG Interpretation ABG results: PT/INR, D-dimer PT 14.9 Seconds (9.4-12.1) H 09/13/16 00:53 Consult Discharge Plan - Plan Referrals: BENI TORRES [Other] - 10/10/16 10:00 am (The office put him on a waiting list if they have someone cancel they will call him and get him in sooner) NO,PCP [Primary Care Provider] - Felice Kang MD [Partnered Physician] - 09/30/16 10:30 am
[2016-09-14] MEDS: Ipratropium/Albuterol Neb 3 ML IH SCH ×6 (04:38→23:27)
[2016-09-14 04:46] LABS: INR 1.8; Prothrombin Time 19.6 Seconds (9.4-12.1)
[2016-09-14 04:51] LABS: Basophils % 0.3 %; Eosinophils # 0.3 K/mcL (0.0-0.6); Eosinophils % 4.3 %; Hematocrit 28.6 % (37.5-50.1); Hemoglobin 9.2 g/dL (12.9-16.9); Immature Granulocytes % 0.6 % (0-4); Lymphocytes # 0.9 K/mcL (0.6-4.6); Lymphocytes % 12.9 %; Mean Corpuscular HGB Conc 32.2 g/dL (31.6-35.5); Mean Corpuscular Hemoglobin 29.8 pg (28.0-33.3); Mean Corpuscular Volume 92.6 fL (83.0-100.0); Mean Platelet Volume 9.2 fL (9.4-12.4); Monocytes # 0.7 K/mcL (0.0-1.3); Monocytes % 10.5 %; Neutrophils # 4.8 K/mcL (1.6-8.9); Platelet Count 255 K/mcL (140-400); Red Blood Count 3.09 M/mcL (4.19-5.50); Red Cell Distribution Width 13.5 % (11.5-14.5); Segmented Neutrophils % 71.4 %
[2016-09-14 05:07] LABS: BUN/Creatinine Ratio 9 (6-26); Calcium 7.8 mg/dL (8.6-10.8); Carbon Dioxide 21 mEq/L (19-29); Chloride 110 mEq/L (98-109); Glucose 85 mg/dL (70-99); Osmolality,Calculated 288 (280-300); Potassium 3.3 mEq/L (3.5-4.5); Sodium 140 mEq/L (136-145); eGFR For African Americans > 60 (> 60); eGFR For Non-African Americans > 60 (> 60)
[2016-09-14 05:08] LABS: Blood Urea Nitrogen 9 mg/dL (8-26)
[2016-09-14] MEDS: SYMBICORT 160/4.5 IH SCH ×2 (07:26→19:47)
[2016-09-14] MEDS ORDERED: Colchicine 0.6 MG TABLET PO ONE (07:51)
--- NOTE | 2016-09-14 08:43 | Oncology Inp Progress Note ---
Date of Encounter: 09/14/16 Time of Encounter: 08:32 Oncology: Subj Interval history: History of present illness: Patient seen and examined at bedside. Chart reviewed for interval details and appreciate ongoing care by hospital team. He is doing much better today. Chest discomfort is completely resolved with current measures. He does not have any respiratory symptoms attributable to his newly diagnosed pulmonary embolism. His tolerating ongoing anticoagulation well with no unexpected side effects. He is now on Coumadin for oral anticoagulation. No other new issues. Review of systems: 12 point review of systems as noted above.All other systems are negative: Physical exam: Vital Signs Temp 98.2 F 09/14/16 07:24 Pulse 83 09/14/16 07:27 Resp 16 09/14/16 07:40 BP 113/79 09/14/16 07:40 Pulse Ox 98 09/14/16 07:40 GENERAL: Alert and oriented, comfortable appearing. Mental Status: Affect appropriate for circumstances Skin: No rashes or petechiae. No evidence of skin malignancy Extremities: No edema. No calf swelling or tenderness. No joint deformity. Neurologic: Global weakness but no focal sensorimotor abnormalities. Results: Laboratory Last Values WBC 6.8 K/mcL (4.3-11.1) 09/14/16 04:02 RBC 3.09 M/mcL (4.19-5.50) L 09/14/16 04:02 Hgb 9.2 g/dL (12.9-16.9) L 09/14/16 04:02 Hct 28.6 % (37.5-50.1) L 09/14/16 04:02 MCV 92.6 fL (83.0-100.0) 09/14/16 04:02 MCH 29.8 pg (28.0-33.3) 09/14/16 04:02 MCHC 32.2 g/dL (31.6-35.5) 09/14/16 04:02 RDW 13.5 % (11.5-14.5) 09/14/16 04:02 Plt Count 255 K/mcL (140-400) 09/14/16 04:02 MPV 9.2 fL (9.4-12.4) L 09/14/16 04:02 Immature Gran % 0.6 % (0-4) 09/14/16 04:02 Seg Neutrophils % 71.4 % 09/14/16 04:02 Lymphocytes % 12.9 % 09/14/16 04:02 Monocytes % 10.5 % 09/14/16 04:02 Eosinophils % 4.3 % 09/14/16 04:02 Basophils % 0.3 % 09/14/16 04:02 Neutrophils # 4.8 K/mcL (1.6-8.9) 09/14/16 04:02 Lymphocytes # 0.9 K/mcL (0.6-4.6) 09/14/16 04:02 Monocytes # 0.7 K/mcL (0.0-1.3) 09/14/16 04:02 Eosinophils # 0.3 K/mcL (0.0-0.6) 09/14/16 04:02 Basophils # 0.0 K/mcL (0.0-0.2) 09/14/16 04:02 PT 19.6 Seconds (9.4-12.1) H 09/14/16 04:02 INR 1.8 09/14/16 04:02 APTT 90.0 Seconds (26.0-36.0) H 09/14/16 04:02 Sodium 140 mEq/L (136-145) 09/14/16 04:02 Potassium 3.3 mEq/L (3.5-4.5) L 09/14/16 04:02 Chloride 110 mEq/L (98-109) H 09/14/16 04:02 Carbon Dioxide 21 mEq/L (19-29) 09/14/16 04:02 BUN 9 mg/dL (8-26) D 09/14/16 04:02 Creatinine 0.95 mg/dL (0.72-1.25) 09/14/16 04:02 Est GFR ( Amer) > 60 (> 60) 09/14/16 04:02 Est GFR (Non-Af Amer) > 60 (> 60) 09/14/16 04:02 BUN/Creatinine Ratio 9 (6-26) 09/14/16 04:02 Glucose 85 mg/dL (70-99) 09/14/16 04:02 Calculated Osmolality 288 (280-300) 09/14/16 04:02 Calcium 7.8 mg/dL (8.6-10.8) L 09/14/16 04:02 Phosphorus 2.1 mg/dL (2.3-4.7) L 09/13/16 00:53 Magnesium 1.9 mg/dL (1.6-2.6) 09/13/16 00:53 Troponin I 0.01 ng/mL (0-0.03) 09/10/16 18:47 Triglycerides 98 mg/dL (< 150) 09/10/16 14:17 Cholesterol 153 mg/dL (< 200) 09/10/16 14:17 LDL Cholesterol, Calc 85 mg/dL (0-99) 09/10/16 14:17 VLDL Cholesterol, Calc 20 mg/dL (< 31) 09/10/16 14:17 HDL Cholesterol 48 mg/dL (40-59) 09/10/16 14:17 Cholesterol/HDL Ratio 3.2 (0-4.9) 09/10/16 14:17 Urine Color Yellow (Yellow) 09/10/16 17:15 Urine Clarity Clear (Clear) 09/10/16 17:15 Urine pH 5.5 pH Units (5.0-8.0) 09/10/16 17:15 Ur Specific [place] > 1.030 (1.010-1.025) H 09/10/16 17:15 Urine Protein 30 mg/dL (Neg-Trace) H 09/10/16 17:15 Urine Glucose (UA) Normal mg/dL (Normal) 09/10/16 17:15 Urine Ketones Negative mg/dL (Negative) 09/10/16 17:15 Urine Blood Negative (Negative) 09/10/16 17:15 Urine Nitrite Negative (Negative) 09/10/16 17:15 Urine Bilirubin Negative (Negative) 09/10/16 17:15 Urine Urobilinogen Normal mg/dL (Normal) 09/10/16 17:15 Ur Leukocyte Esterase Negative (Negative) 09/10/16 17:15 Urine Microscopic RBC 0-3 per hpf (0-3) 09/10/16 17:15 Urine Microscopic WBC 0-3 per hpf (0-3) 09/10/16 17:15 Ur Squamous Epith Cells Many per lpf (None-Few) H 09/10/16 17:15 Urine Bacteria None Seen per hpf (None-Few) 09/10/16 17:15 Vancomycin Trough 5.5 mcg/mL (10-20) L 09/13/16 11:46 Specimen Rejected Miscellaneous 09/10/16 14:17 Radiographic studies: Impression/recommendations: Acute venous thromboembolism: Doing well on current management. Tolerating Coumadin well with known expected side effects. No longer symptomatic from his VTE. Given overall improvement in his symptoms, I anticipate discharge in the near future. Suspected hypercoagulable state: Thrombophilia evaluation, completed as an outpatient since he is a reactive anticoagulation and test results would not influence current management D-dimer is considerably elevated and would be a useful monitoring tool to evaluate his clotting recurrence risk in the future Unexplained anemia: Normocytic variant. No obvious explanation. Persistent and his most recent CBC. He have to complete previously recommended anemia workup. We'll go ahead and put the orders in today. Iron panel, ferritin, reticulocyte count, B12, folate, TSH, T4, LDH etc. if not already completed. Please monitor CBCs with stability while on anticoagulation. He already has a follow-up appointment scheduled with us 09/30/16. We'll follow the patient along side you during this hospitalization but please do not hesitate to call regarding interval hematologic questions as they arise. Thank you for your excellent ongoing care for allowing us to see him while in- house. This report was created using voice recognition software and may contain errors. It was signed but not edited to expedite communication. Corrections will be made as needed in a separate addendum. - Constitutional Vitals: Vital Signs Temp Pulse Resp BP Pulse Ox 09/14/16 07:40 16 113/79 98 09/14/16 07:27 83 09/14/16 07:24 98.2 F 81 16 113/79 97 09/14/16 04:15 84 09/14/16 04:10 98.8 F 80 18 104/75 96 09/14/16 00:09 98.2 F 81 18 121/74 97 09/14/16 00:05 84 09/13/16 20:28 98.7 F 73 18 117/67 94 09/13/16 20:13 18 95 09/13/16 19:20 92 09/13/16 15:47 99.0 F 98 18 119/79 97 09/13/16 11:18 18 95 09/13/16 11:10 92 09/13/16 11:03 98.4 F 93 18 119/70 95 Intake and Output 0409/14/16 09/14/16 16:59 00:59 08:59 Intake Total 650 / 650 1000 / 1000 240 / 240 Output Total 225 / 225 550 / 550 900 / 900 Balance 425 / 425 450 / 450 -660 / -660 Intake: IV Fluids 350 / 350 1000 / 1000 0.9 % Sodium Chloride 1, 1000 / 1000 000 ML @ 75 mls/hr IVC . [id number] [facility] Rx#: [id number] Zosyn 3.375 GM In 100 / 100 Dextrose 5% (Minibag+) 100 ML 100 ML @ 25 mls/hr IVPB Q8HR [facility] Rx#: [id number] Vancocin 1,000 MG In 250 / 250 Dextrose 5% 250 ML @ 167 mls/hr IVPB Q24H [facility] Rx#: [id number] Oral 300 / 300 240 / 240 Output: Urine 225 / 225 550 / 550 900 / 900 Other: Meal Lunch Percent of Meal Consumed 75% Weight 74.8 kg Patient Weight 09/15/16 00:59 Weight 74.8 kg Oncology: Obj Data - Labs CBC & Chem 7: 09/14/16 04:02 09/14/16 04:02 Labs: Laboratory Results - last 24 hr 09/13/16 09/14/16 09/14/16 11:46 04:02 04:02 WBC 6.8 RBC 3.09 L Hgb 9.2 L Hct 28.6 L MCV 92.6 MCH 29.8 MCHC 32.2 RDW 13.5 Plt Count 255 MPV 9.2 L Immature Gran % 0.6 Seg Neutrophils % 71.4 Lymphocytes % 12.9 Monocytes % 10.5 Eosinophils % 4.3 Basophils % 0.3 Neutrophils # 4.8 Lymphocytes # 0.9 Monocytes # 0.7 Eosinophils # 0.3 Basophils # 0.0 PT 19.6 H INR 1.8 APTT 90.0 H Sodium Potassium Chloride Carbon Dioxide BUN Creatinine Est GFR ( Amer) Est GFR (Non-Af Amer) BUN/Creatinine Ratio Glucose Calculated Osmolality Calcium Vancomycin Trough 5.5 L 09/14/16 04:02 WBC RBC Hgb Hct MCV MCH MCHC RDW Plt Count MPV Immature Gran % Seg Neutrophils % Lymphocytes % Monocytes % Eosinophils % Basophils % Neutrophils # Lymphocytes # Monocytes # Eosinophils # Basophils # PT INR APTT Sodium 140 Potassium 3.3 L Chloride 110 H Carbon Dioxide 21 BUN 9 D Creatinine 0.95 Est GFR ( Amer) > 60 Est GFR (Non-Af Amer) > 60 BUN/Creatinine Ratio 9 Glucose 85 Calculated Osmolality 288 Calcium 7.8 L Vancomycin Trough - ABG Interpretation ABG results: PT/INR, D-dimer PT 19.6 Seconds (9.4-12.1) H 09/14/16 04:02 Consult Discharge Plan - Plan Referrals: BENI TORRES [Other] - 10/10/16 10:00 am (The office put him on a waiting list if they have someone cancel they will call him and get him in sooner) NO,PCP [Primary Care Provider] - Felice Kang MD [Partnered Physician] - 09/30/16 10:30 am
[2016-09-14 09:30] LABS: Immature Reticulocyte % 21.8 % (11.0-38.0); Retculocyte # 0.03 M/mcL (0.05-0.10); Reticulocyte % 1.1 % (1.6-2.8)
[2016-09-14 09:50] LABS: Lactate Dehydrogenase 250 Units/L (159-327)
[2016-09-14] MEDS ORDERED: Colchicine 0.6 MG TABLET PO SCH (10:00)
[2016-09-14 11:28] LABS: % Iron Saturation 18 % (20-55); Iron 31 mcg/dL (65-175); Transferrin 126 mg/dL (174-364)
[2016-09-14 12:24] LABS: Ferritin 1412 ng/ml (22-275)
[2016-09-14 12:40] LABS: Folate 8.2 ng/mL (7.0-31.4)
--- NOTE | 2016-09-14 13:09 | Internal Med Progress Note ---
Date of Encounter: 09/14/16 Time of Encounter: 10:00 - Assessment and plan (1) Pulmonary embolus Current Visit: No Status: Acute Assessment and plan: CT chest consistent with bilateral PE B/L LE venous doppler reported LLE SVT, negative to DVT b/L Hematology consultation appreciated Will start Coumadin and bridge with heparin gtt (unable to use Lovenox given kidney function, as per social and human services assistant, patient does not have insurance that will accomodate NOAG therefore will start with Coumadin) Pain better controlled with Toradol and Dilaudid will continue O2 supplementation 2D echo done noted: no right heart strain reported Patient is at high risk because he is on heparin drip, need close monitoring Qualifiers: Pulmonary embolism type: saddle Chronicity: acute Acute cor pulmonale presence: without acute cor pulmonale Qualified Code(s): I26.92 - Saddle embolus of pulmonary artery without acute cor pulmonale (2) COPD (chronic obstructive pulmonary disease) Current Visit: Yes Status: Acute Assessment and plan: not in acute exacerbation will continue bronchodilator support monitor O2 sat O2 supplementation as needed Qualifiers: COPD type: unspecified COPD Qualified Code(s): J44.9 - Chronic obstructive pulmonary disease, unspecified (3) DVT prophylaxis Current Visit: Yes Status: Acute Assessment and plan: anticoagulated with heparin gtt and coumadin. - Time Spent With Patient Greater than 35 minutes - Subjective Interval history: Patient is a 70-year-old male admitted for PE. Past medical history is significant for COPD. Patient was seen and examined. Improve with the shortness of breath and tachycardia. Denies chest pain at rest or taking deep breath. Vital signs stable. Will continue heparin drip and Coumadin treatment, follow-up PT/INR. Pt is on 2L/min [place] O2 now, he has home O2 already for his COPD. - Constitutional Vitals: Temp Pulse Resp BP Pulse Ox 98.3 F 96 16 114/69 97 09/14/16 11:22 09/14/16 11:22 09/14/16 11:22 09/14/16 11:22 09/14/16 11:22 General appearance: Present: cooperative, A&O X 3, pleasant, no acute distress - Head Head exam: Present: atraumatic, normocephalic - Eye Eye exam: Present: PERRL, conjuntiva pink, sclera anicteric Pupils: Present: PERRL - Neck Neck exam general surgery: Present: supple, trachea midline. Absent: lymphadenopathy - Respiratory Respiratory exam: Present: CTAB. Absent: accessory muscle use, rales, rhonchi, wheezes - Cardiovascular Cardiovascular exam: Present: RRR, +S1, +S2. Absent: diastolic murmur, gallop, rubs, systolic murmur - GI/Abdominal GI/Abdominal exam: Present: normal bowel sounds, soft, no peritoneal signs. Absent: distended, tenderness - Extremities Exam Extremities exam: Present: warm, radial pulses palpable and symetrical. Absent : calf tenderness, cyanotic, pedal edema - Neurological Exam Neurological exam: Present: CN II-XII intact, oriented X3, no focal deficits. Absent: pronater drift, facial droop, speech deficit - Skin Skin exam: Present: dry, intact Internal Medicine: Result - Labs CBC & Chem 7: 09/14/16 04:02 09/14/16 04:02 Labs: Short CBC 09/14/16 Range/Units 04:02 WBC 6.8 (4.3-11.1) K/mcL Hgb 9.2 L (12.9-16.9) g/dL Hct 28.6 L (37.5-50.1) % Plt Count 255 (140-400) K/mcL Neutrophils # 4.8 (1.6-8.9) K/mcL BMP 09/14/16 04:02 Sodium 140 Potassium 3.3 L Chloride 110 H Carbon Dioxide 21 BUN 9 D Creatinine 0.95 Glucose 85 Calcium 7.8 L - ABG Interpretation ABG results: PT/INR, D-dimer PT 19.6 Seconds (9.4-12.1) H 09/14/16 04:02 Consult Discharge Plan - Plan Referrals: BENI TORRES [Other] - 10/10/16 10:00 am (The office put him on a waiting list if they have someone cancel they will call him and get him in sooner) NO,PCP [Primary Care Provider] - Felice Kang MD [Partnered Physician] - 09/30/16 10:30 am
[2016-09-14] MEDS: Heparin 25,000 UNIT/500 ML D5W 25,000 UNIT/500 ML MLS IVC SCH (13:24)
[2016-09-14] MEDS ORDERED: *HR* Warfarin 2.5 MG TABLET PO ONE (18:00)
[2016-09-14] MEDS: Budesonide/Formoterol 160/4.5 MDI IH SCH (20:34)
[2016-09-14] MEDS: 0.9 % Sodium Chloride 1,000 ML IVC SCH (21:33)
[2016-09-15] MEDS: Ipratropium/Albuterol Neb 3 ML IH SCH ×6 (03:24→23:49)
[2016-09-15 04:39] LABS: Basophils % 0.4 %; Eosinophils # 0.4 K/mcL (0.0-0.6); Eosinophils % 4.6 %; Hematocrit 27.4 % (37.5-50.1); Hemoglobin 9.1 g/dL (12.9-16.9); Lymphocytes # 1.3 K/mcL (0.6-4.6); Lymphocytes % 16.2 %; Mean Corpuscular HGB Conc 33.2 g/dL (31.6-35.5); Mean Corpuscular Hemoglobin 31.2 pg (28.0-33.3); Mean Corpuscular Volume 93.8 fL (83.0-100.0); Mean Platelet Volume 9.3 fL (9.4-12.4); Monocytes # 0.9 K/mcL (0.0-1.3); Monocytes % 11.2 %; Neutrophils # 5.2 K/mcL (1.6-8.9); Platelet Count 254 K/mcL (140-400); Red Blood Count 2.92 M/mcL (4.19-5.50); Red Cell Distribution Width 13.5 % (11.5-14.5); Segmented Neutrophils % 66.6 %
[2016-09-15 04:46] LABS: INR 2.7; Prothrombin Time 30.1 Seconds (9.4-12.1)
[2016-09-15 04:50] LABS: BUN/Creatinine Ratio 7 (6-26); Blood Urea Nitrogen 6 mg/dL (8-26); Calcium 7.7 mg/dL (8.6-10.8); Carbon Dioxide 21 mEq/L (19-29); Chloride 109 mEq/L (98-109); Glucose 87 mg/dL (70-99); Osmolality,Calculated 285 (280-300); Potassium 3.6 mEq/L (3.5-4.5); Sodium 139 mEq/L (136-145); eGFR For African Americans > 60 (> 60); eGFR For Non-African Americans > 60 (> 60)
[2016-09-15 05:08] LABS: Activated Partial Thrombo Time 132.1 Seconds (26.0-36.0)
[2016-09-15 05:16] LABS: Heparin anti-factor XA UFH 0.4 IU/mL (0.30-0.70)
[2016-09-15] MEDS: Budesonide/Formoterol 160/4.5 MDI IH SCH ×2 (07:43→19:58)
[2016-09-15] MEDS: SYMBICORT 160/4.5 IH SCH ×2 (12:32→20:47)
[2016-09-15] MEDS: Heparin 25,000 UNIT/500 ML D5W 25,000 UNIT/500 ML MLS IVC SCH (13:43)
--- NOTE | 2016-09-15 19:05 | Internal Med Progress Note ---
Date of Encounter: 09/15/16 Time of Encounter: 10:00 - Assessment and plan (1) Pulmonary embolus Current Visit: No Status: Acute Assessment and plan: CT chest consistent with bilateral PE B/L LE venous doppler reported LLE SVT, negative to DVT b/L Hematology consultation appreciated Will start Coumadin and bridge with heparin gtt (unable to use Lovenox given kidney function, as per elementary school social worker, patient does not have insurance that will accomodate NOAG therefore will start with Coumadin) Pain better controlled with Toradol and Dilaudid will continue O2 supplementation 2D echo done noted: no right heart strain reported Patient is at high risk because he is on heparin drip, need close monitoring Qualifiers: Pulmonary embolism type: saddle Chronicity: acute Acute cor pulmonale presence: without acute cor pulmonale Qualified Code(s): I26.92 - Saddle embolus of pulmonary artery without acute cor pulmonale (2) COPD (chronic obstructive pulmonary disease) Current Visit: Yes Status: Acute Assessment and plan: not in acute exacerbation will continue bronchodilator support monitor O2 sat O2 supplementation as needed Qualifiers: COPD type: unspecified COPD Qualified Code(s): J44.9 - Chronic obstructive pulmonary disease, unspecified (3) DVT prophylaxis Current Visit: Yes Status: Acute Assessment and plan: anticoagulated with heparin gtt and coumadin. - Time Spent With Patient Greater than 35 minutes - Subjective Interval history: Patient is a 70-year-old male admitted for PE. Past medical history is significant for COPD. Patient was seen and examined. Improve with the shortness of breath and tachycardia. Denies chest pain at rest or taking deep breath. Vital signs stable. Will continue heparin drip and Coumadin treatment, follow-up PT/INR, d/ c heparin drip if two days of therapeutic INR has reached.. Pt is on 2L/min [place] O2 now, he has home O2 already for his COPD. - Constitutional Vitals: Temp Pulse Resp BP Pulse Ox 98.6 F 94 18 147/75 94 09/15/16 16:43 09/15/16 16:43 09/15/16 16:43 09/15/16 16:43 09/15/16 16:43 General appearance: Present: cooperative, A&O X 3, pleasant, no acute distress - Head Head exam: Present: atraumatic, normocephalic - Eye Eye exam: Present: PERRL, conjuntiva pink, sclera anicteric Pupils: Present: PERRL - Neck Neck exam general surgery: Present: supple, trachea midline. Absent: lymphadenopathy - Respiratory Respiratory exam: Present: CTAB. Absent: accessory muscle use, rales, rhonchi, wheezes - Cardiovascular Cardiovascular exam: Present: RRR, +S1, +S2. Absent: diastolic murmur, gallop, rubs, systolic murmur - GI/Abdominal GI/Abdominal exam: Present: normal bowel sounds, soft, no peritoneal signs. Absent: distended, tenderness - Extremities Exam Extremities exam: Present: warm, radial pulses palpable and symetrical. Absent : calf tenderness, cyanotic, pedal edema - Neurological Exam Neurological exam: Present: CN II-XII intact, oriented X3, no focal deficits. Absent: pronater drift, facial droop, speech deficit - Skin Skin exam: Present: dry, intact Internal Medicine: Result - Labs CBC & Chem 7: 09/15/16 03:56 09/15/16 03:56 Labs: Short CBC 09/15/16 Range/Units 03:56 WBC 7.8 (4.3-11.1) K/mcL Hgb 9.1 L (12.9-16.9) g/dL Hct 27.4 L (37.5-50.1) % Plt Count 254 (140-400) K/mcL Neutrophils # 5.2 (1.6-8.9) K/mcL BMP 09/15/16 03:56 Sodium 139 Potassium 3.6 Chloride 109 Carbon Dioxide 21 BUN 6 L Creatinine 0.91 Glucose 87 Calcium 7.7 L - ABG Interpretation ABG results: PT/INR, D-dimer PT 30.1 Seconds (9.4-12.1) H D 09/15/16 03:56 Consult Discharge Plan - Plan Referrals: BENI TORRES [Other] - 10/10/16 10:00 am (The office put him on a waiting list if they have someone cancel they will call him and get him in sooner) [facility] [Other] - 09/20/16 2:45 pm NO,PCP [Primary Care Provider] - Felice Kang MD [Partnered Physician] - 09/30/16 10:30 am
[2016-09-16] MEDS: Ipratropium/Albuterol Neb 3 ML IH SCH ×2 (03:40→08:15)
[2016-09-16 04:41] LABS: INR 3.2; Prothrombin Time 35.9 Seconds (9.4-12.1)
[2016-09-16] MEDS: Budesonide/Formoterol 160/4.5 MDI IH SCH (07:21)
[2016-09-16] MEDS: SYMBICORT 160/4.5 IH SCH (07:22)
[2016-09-16 07:46] LABS: MMA (VIT B12 STATUS) 0.22 umol/L (0.00-0.40)
[2016-09-16 08:00] VITALS: BP 128/84
--- NOTE | 2016-09-16 09:48 | Discharge Summary ---
Date of Encounter: 09/16/16 Time of Encounter: 10:00 - Discharge Diagnosis (1) Pulmonary embolus Priority: Primary Status: Acute Qualifiers: Pulmonary embolism type: saddle Chronicity: acute Acute cor pulmonale presence: without acute cor pulmonale Qualified Code(s): I26.92 - Saddle embolus of pulmonary artery without acute cor pulmonale (2) COPD (chronic obstructive pulmonary disease) Priority: Secondary Status: Acute Qualifiers: COPD type: unspecified COPD Qualified Code(s): J44.9 - Chronic obstructive pulmonary disease, unspecified (3) DVT prophylaxis Priority: Secondary Status: Acute - Discharge Medications Home Medications: Albuterol Sulfate [Albuterol Inhaler] 2 puff IH Q4H PRN 09/10/16 [History] Budesonide/Formoterol 160/4.5 [Symbicort 160/4.5] 1 puff IH BIDR 09/10/16 [ History] Ipratropium/Albuterol Neb [Duoneb] 3 ml IH Q6HR PRN 09/10/16 [History] Warfarin [Coumadin] 2.5 mg PO 1800 #5 tablet 09/16/16 [Rx] Allergies/Adverse Reactions: Allergies No Known Allergies Allergy (Verified 09/10/16 06:01) - Notes to Outpatient Provider Patient has PE, on Coumadin 2.5 mg by mouth daily, please closely follow up PT/ INR. Date of admission: 09/10/16 17:39 Primary care physician: PCP NO Consults: 09/10/16 13:19 Consult to Pastoral Services [CONS] Routine Comment: Consult to Platform Loader [CONS] Routine Reason for SW Consult: PATIENT REPORTED FINANCIAL CONCERNS. DX: PE, POSSIBLE NEED FOR BLOOD THINNERS AT D/C. 09/11/16 09:50 Consult to Oncology Hematology [CONS] Routine Consulting Provider: Felice Kang Reason for Consult: Bilateral PE and LE DVT Call Completed: Yes Discharging clinician: David Pinto Anticipated date of discharge: 09/16/16 - Patient Status Disposition: Home, Self-Care Condition: Good Functional capacity at discharge: independent ambulation Overall status at discharge: patient is back to baseline - Discharge Instructions Follow Up With: BENI TORRES [Other] - 10/10/16 10:00 am (The office put him on a waiting list if they have someone cancel they will call him and get him in sooner) [facility] [Other] - 09/20/16 2:45 pm NO,PCP [Primary Care Provider] - Felice Kang MD [Partnered Physician] - 09/30/16 10:30 am - Diet and Activity Activity: increase activity as tolerated Diet: regular diet Interval History: Mr. Escalante is a 70 year old male history of COPD wears 2 L of oxygen at home Baseline was transferred from [facility] emergency department with a pulmonary embolism. Mr. Escalante woke up this morning around midnight with left-sided chest pain that came on acutely. He said that he was laying in bed sleeping and was awoken abruptly with left-sided lower rib chest pain which he thought was indigestion. He went down to the kitchen and had a glass of milk and his abdomen may a larger rumbling sound and he felt pain shoot around his abdomen and then back to his left lower anterior ribs. The pain stays isolated does not radiate anywhere else is exacerbated with deep breaths and made him feel short of breath. He is able to use one hand and point to the pain which is anterior lateral ribs around ribs 9 and 10. He denies any pain like this previously. He did not take any other medications to relieve the pain. He was recently hospitalized at [facility] for a COPD exacerbation for which she was discharged with prednisone. Discharge was roughly 1 month ago. He also mentions that he had a low-grade fever 2 days ago but was fully resolved yesterday. He denies any injuries, falls, dramatic events, tight restricting clothing, swelling his lower extremities or infections that may have been predisposing this event. He denies any blood clots previously has never had a DVT or PE. He denies any history of blood clotting disorders or any family history of blood clots. After arriving at [facility] he was found to have acute bilateral pulmonary embolism with since our component. More extensive on the left side. RV/LV ratio measures approximately 1.0. The CTA was also concerning for groundglass attenuations that could not rule out developing infarct of the lung. Also noted was a indeterminate liver lesion as partially visualized on the imaging study. Upon arrival to [facility] he continued to have left- sided chest pain. Patient says that he is usually fully functional without assistive devices and is not very sedentary. Hospital course: Mr. Escalante is a 70 year old male admitted for pulmonary embolism. He was placed on heparin drip, and Coumadin. Echo was done, shows no right ventricular strain. After treatment, patient's shortness of breath and chest pain has improved. Oxygen saturation is get to his baseline (patient has COPD and on home oxygen already.). His INR get up to a therapeutic level. Will DC heparin drip, continue Coumadin treatment and closely follow up as outpatient in anticoagulation clinic. I saw and examined the patient today. He is awake alert, in no acute distress. Denies shortness of breath or chest pain. Oxygen saturation 97% in 2 L nasal cannula oxygen, which is at his baseline. INR 3.2 today. He was given Coumadin the hospital at 5mg, 5mg, 2.5mg, skip one day. Will keep patient on 2.5 mg by mouth daily and recheck INR on [place] (09/20/16). Patient is stable to discharge home. - Time Spent with Patient Total time spent providing and/or coordinating discharge services: 40 minutes. Greater than 30 minutes - Constitutional Vitals: Temp Pulse Resp BP Pulse Ox 98.3 F 81 18 128/84 97 09/16/16 07:57 09/16/16 07:57 09/16/16 08:17 09/16/16 07:57 09/16/16 08:17 General appearance: Present: cooperative, A&O X 3, pleasant, no acute distress - Head Head exam: Present: atraumatic, normocephalic - Eye Eye exam: Present: PERRL, conjuntiva pink, sclera anicteric Pupils: Present: PERRL - Neck Neck exam general surgery: Present: supple, trachea midline. Absent: lymphadenopathy - Respiratory Respiratory exam: Present: CTAB. Absent: accessory muscle use, rales, rhonchi, wheezes - Cardiovascular Cardiovascular exam: Present: RRR, +S1, +S2. Absent: diastolic murmur, gallop, rubs, systolic murmur - GI/Abdominal GI/Abdominal exam: Present: normal bowel sounds, soft, no peritoneal signs. Absent: distended, tenderness - Extremities Exam Extremities exam: Present: warm, radial pulses palpable and symetrical. Absent : calf tenderness, cyanotic, pedal edema - Neurological Exam Neurological exam: Present: CN II-XII intact, oriented X3, no focal deficits. Absent: pronater drift, facial droop, speech deficit - Skin Skin exam: Present: dry, intact
[2016-09-16] MEDS ORDERED: *HR* Warfarin 2 MG TABLET PO ONE (18:00)
[2016-09-29 11:03] LABS: AGL Flow Result See EMR document.
== END 2016-09-16 10:22 | disposition home or self-care (01) | DRG 175 ==
LOC: 2NNU → SUATTDRO 17:39
PROVIDERS: ADMIT Internal Medicine; ATTEND Internal Medicine